=== PATIENT | male | born 1965 | race Asian ===

== ENCOUNTER 2017-02-06 23:44 | Emergency (ER) | payer OTHER ==
[2017-02-07 01:39] LABS: PLATELET COUNT 204 x10^3mcL (130-400); RED CELL DISTRIBUTION WIDTH 14.3 % (11.5-14.5)
[2017-02-07 01:54] LABS: CALCIUM 8.9 mg/dL (8.5-10.1); CARBON DIOXIDE 31.4 mmol/L (21-32); CHLORIDE SERUM 106 mmol/L (98-107); GFR1 > 60 mL/min; GLUCOSE SERUM 114 mg/dL (74-106); POTASSIUM SERUM 3.7 mmol/L (3.5-5.1); SODIUM SERUM 144 mmol/L (136-145)
[2017-02-07 01:58] LABS: ALBUMIN 3.8 g/dL (3.4-5.0); ALKALINE PHOSPHATASE 72 U/L (46-116); ALT/SGPT 32 U/L (16-63); AMYLASE 78 U/L (25-115); AST/SGOT 24 U/L (15-37); BILIRUBIN TOTAL 0.32 mg/dL (0.20-1.00); LIPASE 211 IU/L (73-393); TOTAL PROTEIN, SERUM 6.8 g/dL (6.4-8.2)
[2017-02-07 02:41] LABS: BAND NEUTROPHIL 3 % (0-10); BASOPHIL 0 % (0-2); MONOCYTE 4 % (0-7); PLATELET MORPHOLOGY PLATELETS NORMAL; SEGMENTED NEUTROPHILS 37 % (37-75); rbc morphology (normal/abnorm) NORMAL (NORMAL)
[2017-02-07 03:19] VITALS: BP 100/56
== END 2017-02-07 03:19 | disposition home or self-care (01) ==
LOC: ED 23:44
PROVIDERS: Emergency Medicine
DX: K80.70 Calculus of gallbladder and bile duct without cholecystitis without obstruction (principal)
CPT/HCPCS: 83880; J1170; Q0162

== ENCOUNTER 2017-02-10 03:39 | Inpatient (IN) | payer OTHER ==
[~2017-02-10] VITALS: Ht 170.2 cm; Wt 97.1 kg
[2017-02-10 04:21] LABS: BASOPHIL % 0.3 % (0-2); PLATELET COUNT 189 x10^3mcL (130-400)
[2017-02-10 04:24] LABS: RED CELL DISTRIBUTION WIDTH 15.1 % (11.5-14.5)
[2017-02-10 04:31] LABS: CALCIUM 8.8 mg/dL (8.5-10.1); CARBON DIOXIDE 26.6 mmol/L (21-32); CHLORIDE SERUM 104 mmol/L (98-107); GFR1 > 60 mL/min; GLUCOSE SERUM 105 mg/dL (74-106); POTASSIUM SERUM 3.6 mmol/L (3.5-5.1); SODIUM SERUM 139 mmol/L (136-145)
[2017-02-10 04:35] LABS: ALKALINE PHOSPHATASE 77 U/L (46-116); ALT/SGPT 42 U/L (16-63); AMYLASE 95 U/L (25-115); AST/SGOT 27 U/L (15-37); LIPASE 418 IU/L (73-393); TOTAL PROTEIN, SERUM 7.3 g/dL (6.4-8.2)
[2017-02-10 07:44] LABS: AMPHETAMINE QUAL UR NONE DETECTED (NEG <=1000)
[2017-02-10 08:03] LABS: T3 TOTAL 1.04 ng/mL
[2017-02-10 08:13] LABS: MAGNESIUM 2.5 mg/dL (1.8-2.4); PHOSPHOROUS 4.1 mg/dL (2.5-4.9)
[2017-02-10 08:16] LABS: CHOLESTEROL/HDL RATIO 5.6
[2017-02-10 08:17] LABS: FREE T4 0.71 ng/dL (0.76-1.46); FREE THYROXINE INDEX 2.3 ug/dL (1.4-4.5); T4(THYROXINE) 6.1 ug/dL (4.7-13.3)
[2017-02-10] MEDS ORDERED: LEXAPRO20 MG PO (09:07)
[2017-02-10 11:11] VITALS: BP 118/66
[2017-02-10 13:27] VITALS: BP 130/75
[2017-02-10 14:42] VITALS: BP 118/66
== END 2017-02-10 15:05 | disposition left against medical advice (07) | DRG 444 ==
LOC: ED 03:39 → DU 06:37
PROVIDERS: Emergency Medicine; ADMIT Family Medicine
DX: K80.00 Calculus of gallbladder with acute cholecystitis without obstruction (principal); K85.90 Acute pancreatitis without necrosis or infection, unspecified; N17.0 Acute kidney failure with tubular necrosis; K80.42 Calculus of bile duct with acute cholecystitis without obstruction; E78.2 Mixed hyperlipidemia; E83.41 Hypermagnesemia; R73.03 Prediabetes; F32.9 Major depressive disorder, single episode, unspecified
CPT/HCPCS: 80307; 83880; 84439; J0295; J2270; J2765; J7030; Q0092

== ENCOUNTER 2017-02-18 02:41 | Emergency (ER) | payer OTHER ==
[~2017-02-18 02:41] MED LIST: LEXAPRO20 MG PO
[2017-02-18 03:40] LABS: CALCIUM 8.8 mg/dL (8.5-10.1); CARBON DIOXIDE 30.4 mmol/L (21-32); CHLORIDE SERUM 107 mmol/L (98-107); GFR1 > 60 mL/min; GLUCOSE SERUM 136 mg/dL (74-106); POTASSIUM SERUM 3.5 mmol/L (3.5-5.1); SODIUM SERUM 145 mmol/L (136-145)
[2017-02-18 03:50] LABS: ALBUMIN 3.9 g/dL (3.4-5.0); ALKALINE PHOSPHATASE 74 U/L (46-116); ALT/SGPT 23 U/L (16-63); AST/SGOT 21 U/L (15-37); BILIRUBIN TOTAL 0.45 mg/dL (0.20-1.00); LIPASE 199 IU/L (73-393); TOTAL PROTEIN, SERUM 7.1 g/dL (6.4-8.2)
[2017-02-18 05:47] VITALS: BP 132/57
== END 2017-02-18 05:47 | disposition home or self-care (01) ==
LOC: ED 02:41
PROVIDERS: Emergency Medicine
DX: K80.20 Calculus of gallbladder without cholecystitis without obstruction (principal)
CPT/HCPCS: J1885; J2270; Q0162